=== PATIENT | male | born 1990 | race African-American/Black ===

== ENCOUNTER 2018-06-02 23:18 | Emergency (ER) | payer OTHER ==
[2018-06-02] MEDS ORDERED: Ketorolac Tromethamine 60 MG/2 ML VIAL ONE (23:50)
[2018-06-02] MEDS ORDERED: Dexamethasone 10 MG/ML VIAL ONE (23:50)
--- NOTE | 2018-06-02 23:56 | RAD ---
PORTABLE CHEST: 06/02/18 HISTORY: Chest pain. Heart size and mediastinum are within normal limits. Lungs are clear of any infiltrative process. No signs of failure. IMPRESSION: No active intrathoracic disease. POS: [id number]
== END 2018-06-03 00:04 ==
LOC: ERS 23:18
DX: M94.0 Chondrocostal junction syndrome [Tietze] (principal); F41.9 Anxiety disorder, unspecified
CPT/HCPCS: 71045; 93005; 96372; J1100; J1885